=== PATIENT | female | born 1950 | race Caucasian/White ===

== ENCOUNTER 2019-10-08 07:48 | Outpatient (CLI) | payer MEDICARE, SELFPAY ==
--- NOTE | ~2019-10-08 | MM_ITS ---
EXAMINATION: MM screening memo BI w jairo HISTORY: Screening mammogram TECHNIQUE: Craniocaudal and mediolateral oblique 3-D tomosynthesis images were obtained and synthetic 2-D images were generated. CAD analysis was submitted and interpreted. COMPARISON: 09/17/2018, 09/11/2017, 09/04/2016 bilateral digital screening mammogram examinations BREAST PARENCHYMAL COMPOSITION: There are scattered areas of fibroglandular density.. FINDINGS: There is no evidence of suspicious mass, calcification, or architectural distortion to sugg est malignancy in either breast. There has been no suspicious interval change. IMPRESSION: 1. No mammographic evidence of malignancy. 2. Recommend routine screening mammography in one year. BI-RADS Category 1: Negative Reviewed, dictated and finalized at location A.
--- NOTE | ~2019-10-08 | DEXA_ITS ---
Bone Density Report Name: Jeff García Age: 69 Sex: Female Ethnicity: White Date of : 1950 Indication: postmenopausal; parental hip fracture; Referring Provider: Dolores Oneal Study: Bone densitometry was performed. Exam Date: October 08, 2019 Accession number: [id number] Bone Density: Region BMD T-score Z-score Classification AP Spine (L1-L4) 1.108 0.6 2.5 Normal Femoral Neck (Left) 0.904 0.5 2.1 Normal Total Hip (Left) 1.127 1.5 2.9 Normal Total Hip Bilateral Avg 1.117 1.4 2.8 Normal Femoral Neck (Right) 0.911 0.6 2.2 Normal Total Hip (Right) 1.106 1.3 2.7 Normal World Health Organization criteria for BMD impression classify patients as: Normal (T-score at or above -1.0), Osteopenia (T-score between -1.0 and -2.5), or Osteoporosis (T-score at or below -2.5). 10-year Fracture Risk: FRAX not reported because: All T-scores for Spine Total, Hip Total, Femoral Neck at or above -1.0 Previous Exams: Region Exam Age BMD T-score BMD Change BMD Change Date g/cm2 vs Baseline vs Previous AP Spine(L1-L4) 10/08/2019 69 1.108 0.6 -0.021(-1.8%)# -0.027(-2.4%)# 07/16/2010 60 1.135 0.8 0.006(0.6%) 0.006(0.6%) 07/11/2008 58 1.129 0.7 Total Hip(Left) 10/08/2019 69 1.127 1.5 -0.069(-5.8%)# -0.007(-0.6%)# 07/16/2010 60 1.133 1.6 -0.063(-5.2%)* -0.063(-5.2%)* 07/11/2008 58 1.196 2.1 Total Hip(Right) 10/08/2019 69 1.106 1.3 -0.094(-7.9%)# -0.079(-6.7%)# 07/16/2010 60 1.185 2.0 -0.015(-1.3%) -0.015(-1.3%) 07/11/2008 58 1.200 2.1 *Denotes significance at 95% confidence level, LSC for AP Spine = 0.022 g/cm2, LSC for Total Hip = 0.027 g/cm2 Clinical Information Provided by Patient: Parent has had a hip fracture Patient maximum height was 64 Menopause Age: 54 No regular weight bearing exercise Drinks caffeinated beverages Onset of menses at age 14 Number of children 3 Impression: The patient has normal bone mass. The patient has risk factors, including: parental hip fracture. No significant bone loss was observed. Discussion: LOW RISK OF FRACTURE; BONE DENSITY IS WELL ABOVE THE MINIMUM DESIRABLE LEVEL AND ABOVE AVERAGE FOR AGE AND SEX AT ALL SKELETAL SITES TESTED. This person's bone density is above expected limits for age and sex. This is rarely clinically significant, but should be pursued if there are significant musculoskeletal complaints. The patient should follow a healthful lifestyle (good nu
== END 2019-10-08 07:49 | disposition home or self-care (01) ==
PROVIDERS: PCP Family Medicine; Visit Provider Student in an Organized Health Care Education/Training Program
DX: Z12.31 Encounter for screening mammogram for malignant neoplasm of breast (principal); Z78.0 Asymptomatic menopausal state
CPT/HCPCS: 77063; 77067; 77080

== ENCOUNTER 2020-10-10 07:20 | Outpatient (CLI) | payer MEDICARE, SELFPAY ==
--- NOTE | ~2020-10-10 | MM_ITS ---
EXAMINATION: MM screening memo BI w jairo HISTORY: Screening mammogram TECHNIQUE: Craniocaudal and mediolateral oblique 3-D tomosynthesis images were obtained and synthetic 2-D images were generated. CAD analysis was submitted and interpreted. COMPARISON: 10/25 2019, 09/17/2018, 09/11/2017 bilateral digital mammogram examinations BREAST PARENCHYMAL COMPOSITION: There are scattered areas of fibroglandular density. FINDINGS: There is no evidence of suspicious mass, calcification, or architectural distortion to sugg est malignancy in either breast. There has been no suspicious interval change. IMPRESSION: 1. No mammographic evidence of malignancy. 2. Recommend routine screening mammography in one year. BI-RADS Category 1: Negative Reviewed, dictated and finalized at location A.
== END 2020-10-10 07:21 | disposition home or self-care (01) ==
LOC: ANHIMG 07:26
PROVIDERS: PCP Family Medicine; Visit Provider Student in an Organized Health Care Education/Training Program
DX: Z12.31 Encounter for screening mammogram for malignant neoplasm of breast (principal)
CPT/HCPCS: 77063; 77067

== ENCOUNTER 2021-12-20 14:48 | Outpatient (CLI) | payer MEDICARE, SELFPAY ==
--- NOTE | ~2021-12-20 | DEXA_ITS ---
Bone Density Report Name: SALENA CARLSON Age: 71 Sex: Female Ethnicity: White Date of : 1950 Indication: postmenopausal; screening for osteoporosis; parental hip fracture; Referring Provider: KIM SAN Study: Bone densitometry was performed. Exam Date: December 20, 2021 Accession number: [id number] Bone Density: Region BMD T-score Z-score Classification AP Spine(L1-L4) 1.172 1.1 3.2 Normal Femoral Neck (Left) 0.924 0.7 2.4 Normal Total Hip (Left) 1.106 1.3 2.8 Normal Femoral Neck (Right) 0.918 0.6 2.4 Normal Total Hip (Right) 1.105 1.3 2.8 Normal Total Hip Mean 1.106 1.3 2.8 Normal World Health Organization criteria for BMD impression classify patients as: Normal (T-score at or above -1.0), Osteopenia (T-score between -1.0 and -2.5), or Osteoporosis (T-score at or below -2.5). 10-year Fracture Risk: FRAX not reported because: All T-scores for Spine Total, Hip Total, Femoral Neck at or above -1.0 Previous Exams: Region Exam Age BMD T-score BMD Change BMD Change Date g/cm2 vs Baseline vs Previous AP Spine (L1-L4) 12/20/2021 71 1.172 1.1 0.064 (5.7%)* 0.064 (5.7%)* 10/08/2019 69 1.108 0.6 Total Hip(Left) 12/20/2021 71 1.106 1.3 -0.020 (-1.8%) -0.020 (-1.8%) 10/08/2019 69 1.127 1.5 Total Hip(Right) 12/20/2021 71 1.105 1.3 -0.001 (-0.1%) -0.001 (-0.1%) 10/08/2019 69 1.106 1.3 *Denotes significance at 95% confidence level, LSC for AP Spine = 0.022 g/cm2, LSC for Total Hip = 0.027 g/cm2 Clinical Information Provided by Patient: Parent has had a hip fracture Has used the following medications: Vitamin D, Calcium Patient maximum height was 63.5 Menopause Age: 54 Onset of menses at age 13 Number of children 3 Impression: The patient has normal bone mass. The patient has risk factors, including: parental hip fracture. No significant bone loss was observed. Discussion: LOW RISK OF FRACTURE; BONE DENSITY IS WELL ABOVE THE MINIMUM DESIRABLE LEVEL AND ABOVE AVERAGE FOR AGE AND SEX AT ALL SKELETAL SITES TESTED. This person's bone density is above expected limits for age and sex. This is rarely clinically significant, but should be pursued if there are significant musculoskeletal complaints. The patient should follow a healthful lifestyle (good nutrition with adequate calcium and vitamin D, and appropriate weight-bearing exercise). Follow-Up: Consider repeating this study in 5 years or sooner
--- NOTE | ~2021-12-20 | MM_ITS ---
EXAMINATION: MM screening memo BI w jairo HISTORY: Screening TECHNIQUE: Craniocaudal and mediolateral oblique 3-D tomosynthesis images were obtained and synthetic 2-D images were generated. CAD analysis was submitted and interpreted. COMPARISON: Comparison to multiple prior studies sequentially, with oldest reviewed study dated 08/21. BREAST PARENCHYMAL COMPOSITION: There are scattered areas of fibroglandular density. FINDINGS: There is no evidence of suspicious mass, calcification, or architectural distortion to sugg est malignancy in either breast. There has been no suspicious interval change. IMPRESSION: 1. No mammographic evidence of malignancy. 2. Recommend routine screening mammography in one year. BI-RADS Category 1: Negative Reviewed, dictated and finalized at location A.
== END 2021-12-20 14:49 | disposition home or self-care (01) ==
PROVIDERS: PCP Family Medicine; Visit Provider Student in an Organized Health Care Education/Training Program
DX: Z12.31 Encounter for screening mammogram for malignant neoplasm of breast (principal); Z78.0 Asymptomatic menopausal state
CPT/HCPCS: 77063; 77067; 77080

== ENCOUNTER 2023-02-26 08:08 | Outpatient (CLI) | payer MEDICARE, SELFPAY ==
--- NOTE | ~2023-02-26 | MM_ITS ---
EXAMINATION: MM screening [facility] BI w jairo HISTORY: Screening mammogram TECHNIQUE: Craniocaudal and mediolateral oblique 3-D tomosynthesis images were obtained and synthetic 2-D images were generated. CAD analysis was submitted and interpreted. COMPARISON: 12/20/2021, 10/10/2020, 10/08/2019 BREAST PARENCHYMAL COMPOSITION: There are scattered areas of fibroglandular density. FINDINGS: There is no evidence of suspicious mass, calcification, or architectural distortion to sugg est malignancy in either breast. There has been no suspicious interval change. IMPRESSION: 1. No mammographic evidence of malignancy. 2. Recommend routine screening mammography in one year. BI-RADS Category 1: Negative Reviewed, dictated and finalized at location A.
== END 2023-02-26 08:09 | disposition home or self-care (01) ==
LOC: ANHIMG 08:10
PROVIDERS: PCP Family Medicine; Visit Provider Family Medicine
DX: Z12.31 Encounter for screening mammogram for malignant neoplasm of breast (principal)
CPT/HCPCS: 77063; 77067